=== PATIENT | female | born 1970 | race Caucasian/White ===

== ENCOUNTER 2018-10-28 15:54 | Emergency (ER) | payer SELFPAY ==
[2018-10-28] MEDS ORDERED: Lidocaine 1% (PF) 30 ML VIAL ONE (17:25)
[2018-10-28] MEDS ORDERED: Adacel (T-DAP) 0.5 ML SYRINGE ONE (17:28)
[2018-10-28] MEDS ORDERED: Bacitracin Zinc 1 Packet ONE (18:18)
== END 2018-10-28 18:31 | disposition home or self-care (01) ==
LOC: ERS 15:54
DX: S91.311A Laceration without foreign body, right foot, initial encounter (principal); S91.011A Laceration without foreign body, right ankle, initial encounter; W55.03XA Scratched by cat, initial encounter
CPT/HCPCS: 12004; 90471; 90715; J2001

== ENCOUNTER 2018-11-03 09:33 | Emergency (ER) | payer SELFPAY | END 2018-11-03 10:43 | disposition home or self-care (01) | LOC: ERS 09:33 | DX: S91.011D Laceration without foreign body, right ankle, subsequent encounter (principal); L03.115 Cellulitis of right lower limb; Z79.82 Long term (current) use of aspirin; W55.03XD Scratched by cat, subsequent encounter | CPT/HCPCS: 99283 ==

== ENCOUNTER 2020-12-05 08:09 | Emergency (ER) | payer SELFPAY | END 2020-12-05 09:31 | disposition home or self-care (01) | LOC: ERS 08:09 | DX: S93.402A Sprain of unspecified ligament of left ankle, initial encounter (principal); F17.290 Nicotine dependence, other tobacco product, uncomplicated; W01.0XXA Fall on same level from slipping, tripping and stumbling without subsequent striking against object, initial encounter ==

== ENCOUNTER 2020-12-07 14:57 | Emergency (ER) | payer SELFPAY | END 2020-12-07 16:51 | disposition home or self-care (01) | LOC: ERS 14:57 | DX: S99.912A Unspecified injury of left ankle, initial encounter (principal); F17.290 Nicotine dependence, other tobacco product, uncomplicated ==

== ENCOUNTER 2024-04-22 10:58 | Emergency (ER) | payer SELFPAY | END 2024-04-22 11:44 | disposition home or self-care (01) | LOC: ERS 10:58 | DX: H92.02 Otalgia, left ear (principal); K02.9 Dental caries, unspecified; F17.290 Nicotine dependence, other tobacco product, uncomplicated; Z55.6 Problems related to health literacy | CPT/HCPCS: 99282 ==